=== PATIENT | female | born 1970 | race Caucasian/White ===

== ENCOUNTER 2017-01-07 09:43 | Emergency (ER) | payer MEDICAID ==
[~2017-01-07] VITALS: Ht 165.1 cm; Wt 56.5 kg
[~2017-01-07 09:43] MED LIST: DEPA250T2 PO; DEPA500T PO; LATU80TA PO; PROP10TA26 PO
[2017-01-07 09:44] VITALS: BP 177/81; PULSE 66; RESP 16; TEMP 98.5; O2SAT 100
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
--- NOTE | 2017-01-07 10:28 | RADRPT ---
EXAM DATE/TIME: 01/07/2017 10:18 [facility] COMPARISON: No previous studies available for comparison. INDICATIONS : Left lateral ankle pain after rolling ankle. MEDICAL HISTORY : Hypertension. SURGICAL HISTORY : ENCOUNTER: Initial ACUITY: 1 day PAIN SCORE: 10/10 LOCATION: Left lateral ankle FINDINGS: Three view exam was performed of the left ankle. The bony structures are in normal alignment. No ev idence of fracture, dislocation, or soft tissue swelling. The ankle mortise is intact. No radiopaqu e foreign bodies are seen. Bony mineralization is normal. CONCLUSION: Unremarkable examination of the left ankle. Renard Altamirano Jr., MD on January 07, 2017 at 10:26 Board Certified Radiologist. This report was verified electronically.
== END 2017-01-07 11:13 | disposition home or self-care (01) ==
LOC: NEPD 09:43
DX: S93.402A Sprain of unspecified ligament of left ankle, initial encounter (principal); F31.9 Bipolar disorder, unspecified; I10 Essential (primary) hypertension; F20.9 Schizophrenia, unspecified; W01.0XXA Fall on same level from slipping, tripping and stumbling without subsequent striking against object, initial encounter; X50.1XXA Overexertion from prolonged static or awkward postures, initial encounter; Z72.0 Tobacco use; Z79.899 Other long term (current) drug therapy
CPT/HCPCS: 73610; 99284; L1906